=== PATIENT | male | born 1980 | race Caucasian/White ===

== ENCOUNTER 2024-11-18 15:27 | Outpatient (CLI) | payer OTHER ==
--- NOTE | 2024-11-18 18:57 | RADIOLOGY REPORT ---
EXAM: CT CT UPPER EXTREM(SHOULDER/ARM) INDICATION: PAIN IN LEFT CLAVICLE, CERVICALGIA TECHNIQUE: Axial images of left upper extremity/clavicle have been obtained along with coronal and sa gittal reformatted images. All CT scans at this facility use dose modulation, iterative reconstructio n, and/or weight based dosing when appropriate to reduce radiation dose to as low as reasonably achie vable. COMPARISON: None FINDINGS: BONES: No CT evidence of an acute fracture or aggressive osseous lesion. Postsurgical change of the a nterior superior glenoid. Small cortical irregularity of the posterior superior glenoid with possible appearance of suture tract correlate with clinical exam/surgical history. integrity of the labrum ca n not be accurately assessed. Trace subcortical cyst of the posterior superolateral humeral MUSCLES: No abnormal attenuation. JOINT SPACES: No joint effusion. Mild degenerative change of the left acromioclavicular joint with op posing subchondral cysts TENDONS/LIGAMENTS: Intact. OTHER: None. IMPRESSION: 1. 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 2. Postsurgical change of the anterior superior glenoid. 3. Small cortical irregularity of the posterior superior glenoid with possible appearance of suture t ract and correlate with clinical exam/surgical history.
== END 2024-11-18 23:59 | disposition home or self-care (01) ==
LOC: RAD 15:27
PROVIDERS: ATTEND Pediatrics Sports Medicine
DX: M19.012 Primary osteoarthritis, left shoulder (principal); M89.8X1 Other specified disorders of bone, shoulder; M54.2 Cervicalgia; Z98.890 Other specified postprocedural states
CPT/HCPCS: 73200